=== PATIENT | male | born 1995 | race Caucasian/White ===

== ENCOUNTER 2018-07-08 13:59 | Emergency (ER) | payer MEDICAID ==
[~2018-07-08] VITALS: Ht 170.2 cm; Wt 74.8 kg
[2018-07-08 14:09] VITALS: Ht 170.2 cm; Wt 74.8 kg
[2018-07-08 16:04] VITALS: BP 127/75
== END 2018-07-08 16:04 | disposition other institution (70) ==
LOC: ED 13:59
DX: S20.212A Contusion of left front wall of thorax, initial encounter (principal); S09.8XXA Other specified injuries of head, initial encounter; J45.909 Unspecified asthma, uncomplicated; F32.9 Major depressive disorder, single episode, unspecified; Z91.010 Allergy to peanuts; W22.8XXA Striking against or struck by other objects, initial encounter; Y93.89 Activity, other specified; Y92.89 Other specified places as the place of occurrence of the external cause; Y99.8 Other external cause status
CPT/HCPCS: 90715; Q0092

== ENCOUNTER 2018-07-08 13:59 | Emergency (ER) | payer OTHER | END 2018-07-08 16:04 | disposition other institution (70) | LOC: ED 13:59 | DX: Z02.89 Encounter for other administrative examinations (principal) ==

== ENCOUNTER 2018-07-28 13:52 | Emergency (ER) | payer MEDICAID ==
[~2018-07-28] VITALS: Ht 167.6 cm; Wt 82.1 kg
[2018-07-28 14:01] VITALS: Ht 167.6 cm; Wt 82.1 kg
[2018-07-28 15:31] VITALS: BP 122/70
== END 2018-07-28 15:31 | disposition home or self-care (01) ==
LOC: ED 13:52
DX: J45.901 Unspecified asthma with (acute) exacerbation (principal); F32.9 Major depressive disorder, single episode, unspecified; F90.9 Attention-deficit hyperactivity disorder, unspecified type; Z59.0 Homelessness; Z91.010 Allergy to peanuts
CPT/HCPCS: J2930; J7613; J7644